=== PATIENT | female | born 1980 | race African-American/Black ===

== ENCOUNTER 2020-02-12 18:39 | Emergency (ER) | payer MEDICAID ==
[2020-02-12 22:34] VITALS: BP 120/55
[2020-02-12] MEDS ORDERED: methylPREDNISolone SOD SUCC 125 MG/2 ML VL IM ONE (23:00)
[2020-02-12] MEDS ORDERED: KETOROLAC TROMETH 60MG/2ML VIAL IM ONE (23:00)
== END 2020-02-13 00:09 | disposition home or self-care (01) ==
LOC: ER 18:39
DX: S83.8X2A Sprain of other specified parts of left knee, initial encounter (principal); M25.462 Effusion, left knee; X58.XXXA Exposure to other specified factors, initial encounter; Y93.89 Activity, other specified; Y92.89 Other specified places as the place of occurrence of the external cause; Y99.8 Other external cause status
CPT/HCPCS: 29505; 73562; 96372; 99284; J1885; J2930

== ENCOUNTER 2022-01-03 19:11 | Emergency (ER) | payer MEDICAID ==
[~2022-01-03] VITALS: Ht 162.6 cm; Wt 100.0 kg
[2022-01-03 20:06] LABS: Urine Bacteria NONE SEEN /hpf (None Seen); Urine Blood 1+ /uL (Negative); Urine Specific Gravity 1.019 (1.001-1.035); Urine WBC 1 /hpf (0 - 5)
[2022-01-03 20:06] LABS: Basophils # (auto) 0.2 10 ^3/uL (0-0.2); Basophils % (auto) 2.1 % (0.0-2.0); Eosinophils # (auto) 0.2 10 ^3/uL (0-0.8); Eosinophils % (auto) 2.2 % (0.0-7.0); Hematocrit 38.7 % (36.0-46.0); Lymphocytes # (auto) 2.8 10 ^3/uL (0.4-5.4); Lymphocytes % (auto) 33.6 % (10.0-50.0); Mean Corpuscular Hemoglobin 25.2 pg (28.0-32.0); Mean Corpuscular Hgb Conc. 31.1 g/dL (32.0-36.0); Mean Corpuscular Volume 80.9 fL (80.0-100.0); Monocytes # (auto) 0.5 10 ^3/uL (0-1.3); Monocytes % (auto) 6.3 % (0.0-12.0); Neutrophils # (auto) 4.7 10 ^3/uL (1.6-8.6); Neutrophils % (auto) 55.8 % (37.0-80.0); Nucleated Red Blood Cells % 0.1 %; Red Blood Cells 4.78 10^6/uL (4.0-5.20); Red Cell Distribution Width 14.6 % (11.8-14.3); White Blood Cell 8.4 10^3/uL (4.4-10.8)
[2022-01-03 20:19] LABS: Albumin 3.1 g/dL (3.4-5.0); Calcium 8.1 mg/dL (8.5-10.1); Potassium 3.5 mmol/L (3.5-5.1)
[2022-01-03 20:23] LABS: BUN/Creatinine Ratio 18.1; Bilirubin, Total 0.2 mg/dL (0.2-1.0)
[2022-01-04] MEDS ORDERED: KETOROLAC TROMETH 60MG/2ML VIAL IM ONE (02:00)
[2022-01-04 02:33] VITALS: BP 115/64
== END 2022-01-04 02:36 | disposition home or self-care (01) ==
LOC: ER 19:11
DX: N83.201 Unspecified ovarian cyst, right side (principal); M54.50 Low back pain, unspecified; Z32.02 Encounter for pregnancy test, result negative
CPT/HCPCS: 36415; 74176; 80053; 81001; 81025; 85025; 96372; 99284; J1885

== ENCOUNTER 2023-11-08 00:21 | Emergency (ER) | payer MEDICAID ==
[~2023-11-08] VITALS: Ht 167.6 cm; Wt 99.6 kg
[2023-11-08] MEDS: KETOROLAC TROMETH 60MG/2ML VIAL IM ONE (02:13)
[2023-11-08] MEDS: diphenhdrAMINE HCL 50 MG/1 ML VL IM ONE (02:15)
[2023-11-08] MEDS: PROCHLORPERAZINE EDISYLATE 5 MG/ML 2ML VIAL IM ONE (02:16)
[2023-11-08] MEDS: DexAMETHasone SOD PHOS 10MG/1ML VIAL INJ IM ONE (02:16)
[2023-11-08 02:29] VITALS: BP 116/78; PULSE 82; RESP 18; TEMP 98.1; O2SAT 97
== END 2023-11-08 02:35 | disposition home or self-care (01) ==
LOC: ER 00:21
DX: G43.909 Migraine, unspecified, not intractable, without status migrainosus (principal); H11.31 Conjunctival hemorrhage, right eye
CPT/HCPCS: 96372; 99284; J0780; J1100; J1200; J1885